=== PATIENT | female | born 1975 | race Caucasian/White ===

== ENCOUNTER 2017-03-03 11:28 | Emergency (ER) | payer OTHER ==
[~2017-03-03] VITALS: Ht 157.5 cm; Wt 59.0 kg
--- NOTE | 2017-03-03 11:56 | NUR ---
Patient discharged to home in stable conditon. Written and verbal after care instructions given. Patient verbalizes understanding of instructions.
[2017-03-03] MEDS ORDERED: LORAZEPAM 0.5 MG TABLET PO ONE (12:00)
[2017-03-03] MEDS ORDERED: LORAZEPAM 0.5 MG TABLET ONE (12:06)
== END 2017-03-03 11:56 | disposition home or self-care (01) ==
LOC: ER 11:28
DX: F41.9 Anxiety disorder, unspecified (principal); R07.9 Chest pain, unspecified; F17.210 Nicotine dependence, cigarettes, uncomplicated
CPT/HCPCS: 93005; 99284; A4663